=== PATIENT | male | born 1960 | race Caucasian/White ===

== ENCOUNTER 2019-08-19 21:13 | Emergency (ER) | payer OTHER ==
[2019-08-19] MEDS ORDERED: DUONEB 0.5-3 MG/3 ml Neb IH ONE ×2 (22:48→23:08)
--- NOTE | 2019-08-19 22:48 | ERPHSYRPT ---
- History of Present Illness Time Seen by Provider: 08/19/19 22:27 Source: patient Exam Limitations: no limitations Patient Subjective Stated Complaint: c/o fever and cough, sob Triage Nursing Assessment: pt c/o fever, cough, sob, tightness to abd. Lungs diminished, afebrile, non prod cough and tenderness to abd. Pt c/o abd pain with coughing. Physician History: 59 years old male with history of coronary artery disease status post stenting presented in the ER with chief complaint of productive cough with intermittent fever for the last 4 to 5 days associated with sore throat and nasal congestion. Patient report because of repeated coughing he is having chest soreness and some strain on upper abdominal wall muscle. Denies any nausea vomiting or diarrhea. Timing/Duration: day(s) (5), gradual onset, worse Cough Quality/Degree: moderate, productive cough, sputum Possible Cause: occasional episodes Modifying Factors: Improves With: nothing Associated Symptoms: fever, chills, chest pain/soreness, cough, muscle aches, nasal congestion, wheezing Allergies/Adverse Reactions: No Known Drug Allergies Allergy (Unverified 08/19/19 21:36) Home Medications: Clopidogrel Bisulfate [Plavix] 75 mg PO DAILY 08/19/19 [History] Metoprolol Succinate 25 mg Xl* [Toprol-Xl 25MG Tablets] 25 mg PO DAILY [History] Ramipril [Altace] 5 mg PO DAILY 08/19/19 [History] Hx Tetanus, Diphtheria Vaccination/Date Given: No Hx Influenza Vaccination/Date Given: No Hx Pneumococcal Vaccination/Date Given: No Immunizations Up to Date: No - Review of Systems Constitutional: Fever, Chills, Fatigue, Malaise Eyes: No Symptoms Ears, Nose, & Throat: Nose Congestion, Throat Pain Respiratory: Cough, Wheezing Cardiac: No Symptoms Abdominal/Gastrointestinal: No Symptoms Musculoskeletal: Myalgias Skin: No Symptoms Neurological: No Symptoms Psychological: No Symptoms Endocrine: No Symptoms Hematologic/Lymphatic: No Symptoms - Past Medical History Pertinent Past Medical History: Yes Neurological History: No Pertinent History ENT History: Cataracts Cardiac History: Coronary Artery Disease Respiratory History: No Pertinent History Endocrine Medical History: No Pertinent History Musculoskeletal History: Fractures GI Medical History: GERD History: No Pertinent History Psycho-Social History: No Pertinent History Male Reproductive Disorders: No Pertinent History - Past Surgical History Past Surgical History: Yes Neuro Surgical History: No Pertinent History Cardiac: Cardiac Catheterization, Cardiac Stent Respiratory: No Pertinent History Gastrointestinal: Hernia Repair Genitourinary: No Pertinent History Musculoskeletal: Orthopedic Surgery Male Surgical History: No Pertinent History - Social History Smoking Status: Former smoker Exposure to second hand smoke: Yes Drug Use: none Patient Lives Alone: No - Nursing Vital Signs Nursing Vital Signs: Initial Vital Signs Temperature 98.7 F 08/19/19 21:26 Pulse Rate 85 08/19/19 21:26 Respiratory Rate 18 08/19/19 21:26 Blood Pressure 139/81 08/19/19 21:26 O2 Sat by Pulse Oximetry 96 08/19/19 21:26 Pain Scale Pain Intensity 4 - Physical Exam General Appearance: no apparent distress, alert, anxiety Eye Exam: eyes nml inspection Ears, Nose, Throat Exam: TMs normal, pharyngeal erythema Neck Exam: normal inspection, non-tender, supple, full range of motion Respiratory Exam: airway intact, wheezing, No chest tenderness, No respiratory distress, No accessory muscle use Cardiovascular Exam: regular rate/rhythm, normal heart sounds Gastrointestinal/Abdomen Exam: soft, normal bowel sounds, tenderness (Mild upper abdominal wall/epigastric area tenderness) Back Exam: normal inspection Extremity Exam: normal inspection, normal range of motion Neurologic Exam: alert, oriented x 3, cooperative Skin Exam: normal color SpO2 Interpretation: normal SpO2: 96 O2 Delivery: Room Air - Course Nursing assessment & vital signs reviewed: Yes Ordered Tests: Active Orders 24 hr Category Date Time Status CHEST 2 VIEWS (PA AND LAT) Stat Exams 08/19/19 22:49 Taken CBC W DIFF Stat Lab 08/19/19 23:40 Completed CMP Stat Lab 08/19/19 23:40 Completed LIPASE Stat Lab 08/19/19 23:40 Completed Respiratory Therapy Assessment DAILY RT 08/19/19 23:29 Completed Medication Summary Discontinued Medications Generic Name Dose Route Start Last Admin Trade Name Freq PRN Reason Stop Dose Admin Albuterol/Ipratropium 3 ml 08/19/19 22:48 08/19/19 23:28 Duoneb 0.5-3 Mg/3 Ml Neb IH 08/19/19 22:49 3 ml STAT ONE Administration Albuterol/Ipratropium Confirm 08/19/19 23:08 Duoneb 0.5-3 Mg/3 Ml Neb Administered 08/19/19 23:09 Dose 3 ml IH .STK-MED ONE Oseltamivir Phosphate 75 mg 08/20/19 00:36 Tamiflu 75mg Capsule PO 08/20/19 00:37 STAT ONE Lab/Rad Data: Laboratory Result Diagrams 08/19/19 23:40 08/19/19 23:40 Laboratory Results 08/19/19 08/19/19 08/19/19 Range/Units 23:40 23:40 23:40 WBC 5.3 (4.0-10.5) K/mm3 RBC 4.40 (4.1-5.6) M/mm3 Hgb 13.5 (12.5-18.0) gm/dl Hct 41.2 L (42-50) % MCV 93.6 (78-100) fl MCH 30.7 (26-32) pg MCHC 32.8 (32-36) g/dl RDW 13.7 (11.5-14.0) % Plt Count 155 (150-450) K/mm3 MPV 9.7 (7.5-11.0) fl Gran % 68.2 H (36.0-66.0) % Eos # (Auto) 0.28 (0-0.5) Absolute Lymphs (auto) 0.93 L (1.0-4.6) Absolute Monos (auto) 0.45 (0.0-1.3) Lymphocytes % 17.7 L (24.0-44.0) % Monocytes % 8.6 (0.0-12.0) % Eosinophils % 5.3 H (0.00-5.0) % Basophils % 0.2 (0.0-0.4) % Absolute Granulocytes 3.58 (1.4-6.9) Basophils # 0.01 (0-0.4) Sodium 137 (137-145) mmol/L Potassium 3.8 (3.5-5.1) mmol/L Chloride 102 (98-107) mmol/L Carbon Dioxide 28 (22-30) mmol/L Anion Gap 10.9 (5-15) MEQ/L BUN 13 (9-20) mg/dL Creatinine 0.81 (0.66-1.25) mg/dL Estimated GFR > 60.0 ML/MIN Glucose 104 (74-106) mg/dL Calcium 9.2 (8.4-10.2) mg/dL Total Bilirubin 0.60 (0.2-1.3) mg/dL AST 28 (17-59) U/L ALT 21 (0-50) U/L Alkaline Phosphatase 80 (38-126) U/L Serum Total Protein 7.4 (6.3-8.2) g/dL Albumin 4.1 (3.5-5.0) g/dL Lipase 190 (23-300) U/L Influenza Type A Ag NEGATIVE (NEGATIVE) Influenza Type B Ag POSITIVE (NEGATIVE) RSV (PCR) NEGATIVE (Negative) - Progress Progress: improved, re-examined Air Movement: good Progress Note: 08/20/19 00:35 Years old is evaluated for cough and wheezing along with fever. He is given breathing treatment, on reevaluation patient is feeling better. He did not have a fever while in here. Chest x-ray did not show any definitive pneumonic process. Normal white count, grossly unremarkable chemistries. Does not have any right upper quadrant tenderness. Lipase is normal. I believe his upper abdominal wall strain is more because of coughing. He has positive influenza B , started on Tamiflu. I would also give him albuterol inhaler and recommended taking Robitussin along with it. Discussed signs symptoms of worsening needing return to ER which he seems understanding. Blood Culture(s) Obtained: No Antibiotics given: No Counseled pt/family regarding: lab results, diagnosis, need for follow-up, rad results - Departure Departure Disposition: Home Clinical Impression: Influenza B Condition: Stable Critical Care Time: No Referrals: MARY FREEDMAN [employer] [Primary Care Provider] - Follow Up with PCP/3 days Instructions: Fever, Adult (DC), Flu, Adult (DC) Additional Instructions: Take Tylenol/ibuprofen as needed. Continue with Tamiflu and inhaler. Follow- up with primary care for reevaluation. Return to ER for any worsening. Prescriptions: Albuterol 8 gm Mdi Hfa [Ventolin Hfa MDI] 8 gm IH Q4H #1 [email or web address] Oseltamivir 75 mg [Tamiflu 75MG Capsule] 75 mg PO BID #9 cap
[2019-08-19 23:42] LABS: Absolute Neutrophil Ct (ANC) 3.58 (1.4-6.9); BASOPHIL % 0.2 % (0.0-0.4); Basophil (Absolute #) 0.01 (0-0.4); Eosinophil % 5.3 % (0.00-5.0); Eosinophil (Absolute #) 0.28 (0-0.5); Hematocrit 41.2 % (42-50); Hemoglobin 13.5 gm/dl (12.5-18.0); Lymphocyte (Absolute #) 0.93 (1.0-4.6); Lymphocytes % 17.7 % (24.0-44.0); Mean Cell Volume 93.6 fl (78-100); Mean Corpuscular Hemoglobin 30.7 pg (26-32); Mean Corpuscular Hgb Concent. 32.8 g/dl (32-36); Mean Platelet Volume 9.7 fl (7.5-11.0); Monocyte (Absolute #) 0.45 (0.0-1.3); Monocytes % 8.6 % (0.0-12.0); Neutrophil % 68.2 % (36.0-66.0); Platelet Count 155 K/mm3 (150-450); Red Cell Distribution Width 13.7 % (11.5-14.0); White Blood Count 5.3 K/mm3 (4.0-10.5)
[2019-08-19 23:44] VITALS: O2SAT 96
[2019-08-19 23:53] LABS: ALBUMIN 4.1 g/dL (3.5-5.0); ALKALINE PHOSPHATASE 80 U/L (38-126); ANION GAP 10.9 MEQ/L (5-15); BLOOD UREA NITROGEN 13 mg/dL (9-20); CHLORIDE 102 mmol/L (98-107); Calcium 9.2 mg/dL (8.4-10.2); Carbon Dioxide 28 mmol/L (22-30); Creatinine 1 0.81 mg/dL (0.66-1.25); Glucose 104 mg/dL (74-106); LIPASE 190 U/L (23-300); Potassium 3.8 mmol/L (3.5-5.1); SGOT/AST 28 U/L (17-59); SGPT/ALT 21 U/L (0-50); SODIUM 137 mmol/L (137-145); Total Protein 7.4 g/dL (6.3-8.2)
[2019-08-20 00:36] LABS: INFLUENZA A NEGATIVE (NEGATIVE); INFLUENZA B POSITIVE (NEGATIVE); RESPIRATORY SYNCTIAL VIRUS NEGATIVE (Negative)
[2019-08-20] MEDS ORDERED: Tamiflu 75MG Capsule PO ONE ×2 (00:36→00:50)
[2019-08-20 01:09] VITALS: BP 138/70; PULSE 94
--- NOTE | 2019-08-20 08:02 | XRAY ---
Indication: Cough. URI. Comparison: None PA/lateral chest hyperinflated and clear with a few incidental tiny calcified granulomas. Heart and mediastinal structures within normal limits. Bony thorax intact. Impression: Nonacute hyperinflated chest with evidence for old granulomatous disease.
== END 2019-08-20 01:09 | disposition home or self-care (01) ==
LOC: ED 21:13
DX: J11.1 Influenza due to unidentified influenza virus with other respiratory manifestations (principal)
CPT/HCPCS: 36415; 71046; 80053; 83690; 85025; 87631; 94640; 99284; A9270-GY